=== PATIENT | female | born 1950 | race Caucasian/White ===

== ENCOUNTER → 2017-07-14 | Day surgery (SDC) | payer MEDICARE ==
[~2017-07-14] MED LIST: BUPIVACAINE MPF 0.5% 30 ML VIAL. ONE; FAMOTIDINE 20 MG/2 ML VIAL ONE; HYDROcodone/APAP 5/325MG 1 TAB TABLET ONE; IV RINGERS SOLUTION,LACTATED 1,000 ML IV ONE; LIDOCAINE 1% PF 30 ML VIAL. ONE; ONDANSETRON PF 4 MG/2 ML VIAL. ONE; PROPOFOL 20 ML IV ONE; PROPOFOL 50 ML IV ONE
[2017-07-14 09:51] LABS: BILIRUBIN,URINE NEG (NEG); CLARITY,URINE CLOUDY; COLOR,URINE AMBER; GLUCOSE,URINE NEG (NEG)
[2017-07-14 09:52] LABS: BACTERIA,URINE FEW /HPF (0-FEW); NITRITE,URINE NEG (NEG); RBC,URINE OCC /HPF (0-2); SQUAMOUS EPITHELIAL CELL,UR MOD /LPF; UROBILINOGEN,URINE 0.2 mg/dL (0.2 mg/dL)
== END | disposition home or self-care (01) ==
LOC: SURG 09:15
PROVIDERS: ATTEND Anesthesiology Pain Medicine
DX: M48.06 Spinal stenosis, lumbar region (principal); I10 Essential (primary) hypertension; Z86.73 Personal history of transient ischemic attack (TIA), and cerebral infarction without residual deficits; F41.9 Anxiety disorder, unspecified; F32.9 Major depressive disorder, single episode, unspecified; K57.90 Diverticulosis of intestine, part unspecified, without perforation or abscess without bleeding; Z72.89 Other problems related to lifestyle; E11.9 Type 2 diabetes mellitus without complications; Z90.49 Acquired absence of other specified parts of digestive tract; Z91.041 Radiographic dye allergy status
CPT/HCPCS: 0275T; 81001; 82947; J0690; J2001; J2405; J2704; J3010; J3490; J7120; S0028

== ENCOUNTER → 2017-10-29 | Outpatient (CLI) | payer MEDICARE, OTHER ==
--- NOTE | 2017-10-29 13:43 | RAD ---
INDICATION: BACK PAIN COMPARISON: None. IMPRESSION: Lumbar spine: 5 views obtained including flexion and extension. Calcific atherosclerosis. Grade 1 anterolisthesis of L4 on 5. There is some degenerative changes the lumbar spine with osteophyte formation as well as multilevel facet hypertrophy. No definite acute fracture. The anterolisthesis of L4 on 5 persists on flexion and extension.
== END | disposition home or self-care (01) ==
LOC: EDBD 12:34 → DXRAD 12:34
PROVIDERS: ATTEND Anesthesiology Pain Medicine
DX: M47.896 Other spondylosis, lumbar region (principal); M25.78 Osteophyte, vertebrae; I70.0 Atherosclerosis of aorta
CPT/HCPCS: 72110

== ENCOUNTER → 2017-11-10 | Day surgery (SDC) | payer MEDICARE, OTHER ==
[~2017-11-10] MED LIST changes: +BACITRACIN 50,000 UNIT VIAL. ONE; +CLINDAMYCIN 600MG PREMIX 50 ML IV ONE; -FAMOTIDINE 20 MG/2 ML VIAL ONE; -HYDROcodone/APAP 5/325MG 1 TAB TABLET ONE; +LIDOCAINE 2% PF Vial for OR 5 ML VIAL. ONE; -ONDANSETRON PF 4 MG/2 ML VIAL. ONE; -PROPOFOL 20 ML IV ONE; +PROPOFOL 40 ML IV ONE; -PROPOFOL 50 ML IV ONE
[2017-11-10 11:25] LABS: BASO # 0.1 x10^3/uL (0.0-0.2); BASO % 1 % (0-3); EOS # 0.1 x10^3/uL (0.0-0.7); EOS % 1 % (0-3); HEMATOCRIT 42.3 % (36.0-47.0); HEMOGLOBIN 14.4 g/dL (12.0-15.5); LYMPH # 2.6 x10^3/uL (1.0-4.8); LYMPH % 25 % (24-48); MEAN CORPUSCULAR HEMOGLOBIN 30 pg (25-35); MEAN CORPUSCULAR HGB CONC 34 g/dL (31-37); MEAN CORPUSCULAR VOLUME 89 fL (79-100); MONO # 0.9 x10^3/uL (0.0-1.1); MONO % 9 % (0-9); NEUT # 6.6 x10^3uL (1.8-7.7); NEUT % 64 % (31-73); PLATELET COUNT 236 x10^3/uL (140-400); RED BLOOD COUNT 4.78 x10^6/uL (3.50-5.40); WHITE BLOOD COUNT 10.3 x10^3/uL (4.0-11.0)
[2017-11-10 12:18] LABS: BILIRUBIN,URINE NEG (NEG); CLARITY,URINE HAZY; COLOR,URINE YELLOW; GLUCOSE,URINE NEG (NEG); NITRITE,URINE NEG (NEG); RBC,URINE OCC /HPF (0-2); UROBILINOGEN,URINE 0.2 mg/dL (0.2 mg/dL); WBC,URINE OCC /HPF (0-4)
[2017-11-10 12:19] LABS: AMORPHOUS SEDIMENT,UR PRESENT /HPF; BACTERIA,URINE FEW /HPF (0-FEW); SQUAMOUS EPITHELIAL CELL,UR FEW /LPF
== END | disposition home or self-care (01) ==
LOC: SURG 10:09
PROVIDERS: ATTEND Anesthesiology Pain Medicine
DX: M48.062 Spinal stenosis, lumbar region with neurogenic claudication (principal); I10 Essential (primary) hypertension; F41.9 Anxiety disorder, unspecified; F32.9 Major depressive disorder, single episode, unspecified; E11.9 Type 2 diabetes mellitus without complications; Z86.73 Personal history of transient ischemic attack (TIA), and cerebral infarction without residual deficits; Z79.899 Other long term (current) drug therapy; Z91.041 Radiographic dye allergy status; Z72.89 Other problems related to lifestyle; Z90.49 Acquired absence of other specified parts of digestive tract
CPT/HCPCS: 22867; 36415; 81001; 82947; 85025; J2001; J2704; J3010; J3490; J7120